=== PATIENT | female | born 1955 | race Caucasian/White ===

== ENCOUNTER 2018-12-18 05:12 | Day surgery (SDC) | payer OTHER ==
[~2018-12-18 05:12] MED LIST: ASPIR 8181 MG PO; CARTIA XT240 MG PO; DAILY VALUE1 EACH PO; GLUMETZA500 MG PO; HYDROCHLOROTH12.5 M1 PO; IBERSARTAN PO; MAGNESIUM500 MG PO; OMEGA PO; ROSUVASTA PO
== END 2018-12-18 12:50 | disposition home or self-care (01) ==
LOC: CIR.AMB 05:12
DX: N84.0 Polyp of corpus uteri (principal)

== ENCOUNTER 2025-02-01 06:32 | Day surgery (SDC) | payer OTHER ==
[2025-01-30 11:19] VITALS: BP 170/88
[~2025-02-01] VITALS: Ht 157.5 cm; Wt 88.0 kg
[~2025-02-01 06:32] MED LIST changes: +JARDIANCE10 MG PO
[2025-02-01] MEDS ORDERED: CEFAZOLIN SODIUM 1,000 MG VIAL ONE (12:29)
[2025-02-01] MEDS ORDERED: CHLORHEXIDINE GLUCONATE 120 ML BOTTLE TOP ONE (15:03)
== END 2025-02-01 19:45 | disposition home or self-care (01) ==
LOC: CIR.AMB 06:32
PROVIDERS: ATTEND Surgery
DX: D05.12 Intraductal carcinoma in situ of left breast (principal); R59.0 Localized enlarged lymph nodes; N60.82 Other benign mammary dysplasias of left breast; I10 Essential (primary) hypertension; E11.9 Type 2 diabetes mellitus without complications; Z91.011 Allergy to milk products; Z91.09 Other allergy status, other than to drugs and biological substances; E78.5 Hyperlipidemia, unspecified